=== PATIENT | male | born 1945 | race Caucasian/White ===

== ENCOUNTER → 2023-04-04 07:10 | Outpatient (REF) | payer OTHER, SELFPAY | LOC: MRI 3T 07:10 | PROVIDERS: ATTENDING PHYSICIAN Orthopaedic Surgery; FAMILY PHYSICIAN Internal Medicine Cardiovascular Disease | DX: M54.16 Radiculopathy, lumbar region (principal) | CPT/HCPCS: 72148 ==

== ENCOUNTER → 2023-05-15 14:10 | Outpatient (REF) | payer OTHER, SELFPAY | LOC: RAD 14:10 | PROVIDERS: ATTENDING PHYSICIAN Orthopaedic Surgery; FAMILY PHYSICIAN Family Medicine | DX: M54.10 Radiculopathy, site unspecified (principal) | CPT/HCPCS: 93922; 93925 ==

== ENCOUNTER → 2023-11-03 13:14 | Outpatient (REF) | payer OTHER, SELFPAY | LOC: RAD 13:14 | PROVIDERS: ATTENDING PHYSICIAN Surgery; FAMILY PHYSICIAN Family Medicine | DX: C49.0 Malignant neoplasm of connective and soft tissue of head, face and neck (principal) | CPT/HCPCS: 71260; 74177; Q9967 ==

== ENCOUNTER → 2024-03-01 08:13 | Outpatient (REF) | payer OTHER, SELFPAY | LOC: RAD 08:13 | PROVIDERS: ATTENDING PHYSICIAN Surgery; FAMILY PHYSICIAN Family Medicine | DX: R91.1 Solitary pulmonary nodule (principal) | CPT/HCPCS: 71260; Q9967 ==

== ENCOUNTER → 2024-09-27 09:50 | Outpatient (REF) | payer OTHER, SELFPAY | LOC: RAD 09:50 | PROVIDERS: ATTENDING PHYSICIAN Surgery; FAMILY PHYSICIAN Family Medicine | DX: C49.0 Malignant neoplasm of connective and soft tissue of head, face and neck (principal) | CPT/HCPCS: 70491; 71260; Q9967 ==

== ENCOUNTER → 2024-10-20 14:35 | Outpatient (REF) | payer OTHER, SELFPAY | LOC: HWRAD 14:35 | PROVIDERS: ATTENDING PHYSICIAN Surgery; FAMILY PHYSICIAN Family Medicine | DX: C49.0 Malignant neoplasm of connective and soft tissue of head, face and neck (principal) | CPT/HCPCS: 76536 ==

== ENCOUNTER → 2024-12-19 10:04 | Outpatient (REF) | payer OTHER, SELFPAY | LOC: HWRCS 10:04 | PROVIDERS: ATTENDING PHYSICIAN Internal Medicine Interventional Cardiology; FAMILY PHYSICIAN Family Medicine | DX: I25.2 Old myocardial infarction (principal) | CPT/HCPCS: 93306 ==